=== PATIENT | female | born 1985 | race Two or more races ===

== ENCOUNTER 2018-01-21 02:33 | Inpatient (IN) | payer BC ==
[~2018-01-21] VITALS: Ht 162.6 cm; Wt 59.0 kg
--- NOTE | 2018-01-21 02:52 | PHYS DOC ---
Adult General Chief Complaint Chief Complaint: ABDOMINAL PAIN HPI HPI Patient is a 32 year old female who presents with right flank pain. Patient was at baseline health until 10 PM last night. She had sudden onset of pain in the right flank. Since then, she has had worsening pain symptoms. She has had nausea and vomiting. No fever or chills. She does endorse some dysuria and frequency of urination. Her last menstrual. Was on the 22 of last month. Patient states she is normally regular. No abnormal vaginal bleeding or discharge. Review of Systems Review of Systems Constitutional: Denies fever or chills Eyes: Denies change in visual acuity HENT: Denies nasal congestion Respiratory: Denies cough or shortness of breath Cardiovascular: No additional information not addressed in HPI GI: no abdominal pain : + dysuria and urgency of urine Integument: Denies rash or skin lesions Neurologic: Denies Endocrine: Denies All other systems were reviewed and found to be within normal limits, except as documented in this note. Current Medications Current Medications Current Medications Medications (Trade) Dose Ordered Sig/Renee Start Time Stop Time Status Last Admin Dose Admin Ceftriaxone Sodium 50 ml @ 100 mls/hr 1X ONCE 01/21/18 04:30 01/21/18 04:59 DC 01/21/18 04:29 100 MLS/HR Fentanyl Citrate (Fentanyl 2ml Vial) 75 mcg 1X ONCE 01/21/18 03:30 01/21/18 03:31 DC 01/21/18 03:09 75 MCG Ketorolac Tromethamine (Toradol 30mg Vial) 30 mg 1X ONCE 01/21/18 06:00 01/21/18 06:01 01/21/18 05:39 30 MG Morphine Sulfate (Morphine Sulfate) 4 mg PRN Q2HR PRN 01/21/18 05:30 01/22/18 05:29 Ondansetron HCl (Zofran) 4 mg PRN Q8HRS PRN 01/21/18 05:30 01/22/18 05:29 Sodium Chloride 1,000 ml @ 100 mls/hr Q10H 01/21/18 05:30 01/22/18 05:29 01/21/18 05:39 100 MLS/HR Allergies Allergies Allergies Coded Allergies Type Severity Reaction Last Updated Verified No Known Drug Allergies 01/21/18 No Physical Exam Physical Exam Constitutional: Well developed, well nourished, significant distress 2/2 pain HENT: Normocephalic, atraumatic, bilateral external ears normal Eyes: PERRLA, EOMI, conjunctiva normal Neck: Normal range of motion, no tenderness Cardiovascular:Heart rate regular rhythm Lungs & Thorax: Bilateral breath sounds clear Abdomen: Bowel sounds normal, soft, NTTP Skin: Warm, dry, no erythema, no rash Back: No tenderness, + right CVA tenderness Extremities: No tenderness, no edema Neurologic: Alert and oriented X 3 Psychologic: Affect normal Current Patient Data Vital Signs Vital Signs Date Time Temp Pulse Resp B/P (MAP) Pulse Ox O2 Delivery O2 Flow Rate FiO2 01/21/18 04:28 22 01/21/18 03:09 96 01/21/18 02:40 99.9 102 120/72 (88) Room Air 99.9 Lab Values Laboratory Tests Test 01/21/18 02:02 01/21/18 02:50 01/21/18 02:55 Urine Collection Type Unknown Urine Color Yellow Urine Clarity Cloudy Urine pH 5.5 Urine Specific [place] 1.020 Urine Protein 100 mg/dL (NEG-TRACE) Urine Glucose (UA) Negative mg/dL (NEG) Urine Ketones (Stick) Negative mg/dL (NEG) Urine Blood Large (NEG) Urine Nitrite Positive (NEG) Urine Bilirubin Negative (NEG) Urine Urobilinogen Dipstick 0.2 mg/dL (0.2 mg/dL) Urine Leukocyte Esterase Large (NEG) Urine RBC Tntc /HPF (0-2) Urine WBC Tntc /HPF (0-4) Urine Squamous Epithelial Cells Few /LPF Urine Bacteria Many /HPF (0-FEW) POC Urine HCG, Qualitative Hcg negative (Negative) White Blood Count 10.0 x10^3/uL (4.0-11.0) Red Blood Count 4.36 x10^6/uL (3.50-5.40) Hemoglobin 13.3 g/dL (12.0-15.5) Hematocrit 37.8 % (36.0-47.0) Mean Corpuscular Volume 87 fL (79-100) Mean Corpuscular Hemoglobin 30 pg (25-35) Mean Corpuscular Hemoglobin Concent 35 g/dL (31-37) Red Cell Distribution Width 13.8 % (11.5-14.5) Platelet Count 229 x10^3/uL (140-400) Neutrophils (%) (Auto) 89 % (31-73) H Lymphocytes (%) (Auto) 9 % (24-48) L Monocytes (%) (Auto) 1 % (0-9) Eosinophils (%) (Auto) 0 % (0-3) Basophils (%) (Auto) 1 % (0-3) Neutrophils # (Auto) 8.9 x10^3uL (1.8-7.7) H Lymphocytes # (Auto) 0.9 x10^3/uL (1.0-4.8) L Monocytes # (Auto) 0.1 x10^3/uL (0.0-1.1) Eosinophils # (Auto) 0.0 x10^3/uL (0.0-0.7) Basophils # (Auto) 0.1 x10^3/uL (0.0-0.2) Segmented Neutrophils % 86 % (35-66) H Band Neutrophils % 6 % (0-9) Lymphocytes % 7 % (24-48) L Monocytes % 1 % (0-10) Platelet Estimate Adequate (ADEQUATE) Sodium Level 138 mmol/L (136-145) Potassium Level 3.6 mmol/L (3.5-5.1) Chloride Level 103 mmol/L (98-107) Carbon Dioxide Level 23 mmol/L (21-32) Anion Gap 12 (6-14) Blood Urea Nitrogen 17 mg/dL (7-20) Creatinine 0.9 mg/dL (0.6-1.0) Estimated GFR (Cockcroft-Gault) 72.1 Glucose Level 124 mg/dL (70-99) H Calcium Level 8.6 mg/dL (8.5-10.1) Laboratory Tests 01/21/18 02:55 Laboratory Tests 01/21/18 02:55 EKG EKG [] Radiology/Procedures Radiology/Procedures FINDINGS: Images through the lung bases demonstrate minimal dependent subsegmental atelectasis bilaterally. The liver, spleen, pancreas, and adrenal glands are within normal limits. No focal abnormality of the left kidney is seen. Mild prominence of the right intrarenal collecting system is seen. A 2 mm calcific density is seen in the region of the right UPJ best seen on the coronal reconstructed images. This is felt to represent a right UPJ calculus which is causing mild obstruction of the right collecting system. There is no evidence of obstruction of the left collecting system. The abdominal aorta tapers normally. The gallbladder is well-distended. No free fluid or free air is seen within the abdomen. There is no evidence of bowel obstruction. Air and stool seen throughout the colon. The appendix is well-visualized and is within normal limits. Images through the pelvis demonstrate the urinary bladder distended with urine. No free fluid is seen. No adnexal mass is noted. Minimal S-shaped curvature of the thoracolumbar spine is seen. IMPRESSION: There appears to be a 2 mm right UPJ calculus which is causing mild obstruction of the right collecting system. Course & Med Decision Making Course & Med Decision Making Pertinent Labs and Imaging studies reviewed. (See chart for details) 02:45: Patient is seen and examined. Significant distress with right flank pain. Labs, IVF's, medications for pain ordered. 03:30: Feeling improved. Labs pending. 05:15: All results are reviewed. The patient does continue to have some pain. She has had 1 L of normal saline in the ER. She was noted to have urinary tract infection as well. There is a 2 mm stone at the right UVJ with mild hydro-. Given that started is infected, I discussed the option of admission versus discharge home with the patient. The patient prefers admission for pain control primarily. She will be admitted to the hospitalist service. There is no acute intervention required for a 2 mm stone so urology consultation is deferred to the decision of the primary admitting team. Prior to admission, all results are reviewed and explained to the patient. All of her questions are answered. Her family member is serving as the primary air technician. Dragon Disclaimer Dragon Disclaimer This electronic medical record was generated, in whole or in part, using a voice recognition dictation system. Departure Departure Disposition: ADMITTED INPATIENT Condition: STABLE Referrals: NO PCP (PCP) NELLI BURNETT DO Jan 21, 2018 02:52
[2018-01-21 02:59] LABS: BILIRUBIN,URINE NEGATIVE (NEG); CLARITY,URINE CLOUDY; COLOR,URINE YELLOW; NITRITE,URINE POSITIVE (NEG); PH,URINE 5.5; PROTEIN,URINE 100 mg/dL (NEG-TRACE); UROBILINOGEN,URINE 0.2 mg/dL (0.2 mg/dL)
[2018-01-21 03:10] LABS: BASO # 0.1 x10^3/uL (0.0-0.2); BASO % 1 % (0-3); EOS % 0 % (0-3); HEMATOCRIT 37.8 % (36.0-47.0); HEMOGLOBIN 13.3 g/dL (12.0-15.5); LYMPH # 0.9 x10^3/uL (1.0-4.8); LYMPH % 9 % (24-48); MEAN CORPUSCULAR HEMOGLOBIN 30 pg (25-35); MEAN CORPUSCULAR HGB CONC 35 g/dL (31-37); MEAN CORPUSCULAR VOLUME 87 fL (79-100); MONO # 0.1 x10^3/uL (0.0-1.1); MONO % 1 % (0-9); NEUT # 8.9 x10^3uL (1.8-7.7); NEUT % 89 % (31-73); PLATELET COUNT 229 x10^3/uL (140-400); RED BLOOD COUNT 4.36 x10^6/uL (3.50-5.40); RED CELL DISTRIBUTION WIDTH 13.8 % (11.5-14.5)
[2018-01-21 03:27] LABS: CALCIUM 8.6 mg/dL (8.5-10.1); CREATININE 0.9 mg/dL (0.6-1.0); GFR 72.1; POTASSIUM 3.6 mmol/L (3.5-5.1)
[2018-01-21] MEDS ORDERED: ONDANSETRON PF 4 MG/2 ML VIAL. IV ONE (03:30)
[2018-01-21] MEDS ORDERED: fentaNYL PF VIAL 100 MCG/2 ML VIAL IV ONE (03:30)
[2018-01-21 03:31] LABS: BACTERIA,URINE MANY /HPF (0-FEW); RBC,URINE TNTC /HPF (0-2); SQUAMOUS EPITHELIAL CELL,UR FEW /LPF; WBC,URINE TNTC /HPF (0-4)
[2018-01-21] MEDS ORDERED: IV NORMAL SALINE 1000ML BAG 1,000 ML IV ONE (04:00)
[2018-01-21] MEDS ORDERED: MORPHINE SULFATE 4 MG/ML VIAL. IV ONE (04:30)
--- NOTE | 2018-01-21 04:48 | RAD ---
CT scan of the abdomen and pelvis without contrast 01/21/2018 CLINICAL HISTORY: Right flank pain. TECHNIQUE: Unenhanced, contiguous, 2 mm axial sections were obtained through the abdomen and pelvis. One or more of the following individualized dose reduction techniques were utilized for this study: 1. Automated exposure control. 2. Adjustment of the mA and/or kV according to patient size. 3. Use of iterative reconstruction technique. FINDINGS: Images through the lung bases demonstrate minimal dependent subsegmental atelectasis bilaterally. The liver, spleen, pancreas, and adrenal glands are within normal limits. No focal abnormality of the left kidney is seen. Mild prominence of the right intrarenal collecting system is seen. A 2 mm calcific density is seen in the region of the right UPJ best seen on the coronal reconstructed images. This is felt to represent a right UPJ calculus which is causing mild obstruction of the right collecting system. There is no evidence of obstruction of the left collecting system. The abdominal aorta tapers normally. The gallbladder is well-distended. No free fluid or free air is seen within the abdomen. There is no evidence of bowel obstruction. Air and stool seen throughout the colon. The appendix is well-visualized and is within normal limits. Images through the pelvis demonstrate the urinary bladder distended with urine. No free fluid is seen. No adnexal mass is noted. Minimal S-shaped curvature of the thoracolumbar spine is seen. IMPRESSION: There appears to be a 2 mm right UPJ calculus which is causing mild obstruction of the right collecting system. Electronically signed by: Jose Jean Baptiste MD (01/21/2018 4:45 AM) [facility]
[2018-01-21] MEDS ORDERED: ONDANSETRON PF 4 MG/2 ML VIAL. IV PRN ×2 (05:30→09:00)
[2018-01-21] MEDS: IV NORMAL SALINE 1000ML BAG 1,000 ML IV SCH ×2 (05:39→15:30)
[2018-01-21 05:46] LABS: % BANDS 6 % (0-9); % LYMPHS 7 % (24-48); % MONOS 1 % (0-10); % SEGS 86 % (35-66); PLT ESTIMATE ADEQUATE (ADEQUATE)
[2018-01-21] MEDS ORDERED: KETOROLAC 30 MG/ML VIAL. IV ONE (06:00)
[2018-01-21 07:00] VITALS: BP 97/61
[2018-01-21] MEDS ORDERED: PROCHLORPERAZINE 10 MG/2 ML VIAL. IV PRN (09:00)
[2018-01-21] MEDS ORDERED: BISACODYL 10 MG SUPP.RECT. PR PRN (09:00)
[2018-01-21] MEDS ORDERED: ACETAMINOPHEN 325 MG TABLET. PO PRN (09:00)
--- NOTE | 2018-01-21 09:04 | PDOC1 ---
History and Physical Date of Admission Date of Admission DATE: 01/21/18 TIME: 08:58 Identification/Chief Complaint Chief Complaint Abdominal Pain Source Source: Patient History of Present Illness History of Present Illness 32 year old macedonian speaking female with no significant PMHx p/w right flank pain. At 2200 last night had sudden onset sharp colicky pains not relieved with repositioning or tylenol. Since then, she has had worsening pain symptoms and now had nausea and vomiting. No fever or chills. She denies or h/o STIs and no history of nephrolithiasis. She does endorse some dysuria and frequency of urination. LMP 22nd of last month. Patient states she is normally regular. No abnormal vaginal bleeding or discharge. In ED noted tachycardic and tachypneic, given IVF and had CT showing right hydronephrosis and 2mm UPJ stone. Due to her initial septic appearance was given 1g rocephin and admitted for pain control. Past Medical History Cardiovascular: No pertinent hx Pulmonary: No pertinent hx GI: No pertinent hx Heme/Onc: No pertinent hx Hepatobiliary: No pertinent hx Psych: No pertinent hx Rheumatologic: No pertinent hx Infectious disease: No pertinent hx ENT: No pertinent hx Renal/: No pertinent hx Endocrine: No pertinent hx Dermatology: No pertinent hx Family History Family History: Diabetes, High Cholestrol, Hypertension Social History Smoke: No ALCOHOL: none Drugs: None Current Problem List Problem List Problems Medical Problems: (1) Kidney stone Status: Acute (2) Urinary tract infection Status: Acute Current Medications Current Medications Current Medications Ondansetron HCl (Zofran) 4 mg 1X ONCE IV Last administered on 01/21/18at 03:09 ; Start 01/21/18 at 03:30; Stop 01/21/18 at 03:31; Status DC Fentanyl Citrate (Fentanyl 2ml Vial) 75 mcg 1X ONCE IV Last administered on at 03:09; Start 01/21/18 at 03:30; Stop 01/21/18 at 03:31; Status DC Sodium Chloride 1,000 ml @ 1,000 mls/hr 1X ONCE IV Last administered on 01/21at 03:53; Start 01/21/18 at 04:00; Stop 01/21/18 at 04:59; Status DC Ceftriaxone Sodium 50 ml @ 100 mls/hr 1X ONCE IV Last administered on at 04:29; Start 01/21/18 at 04:30; Stop 01/21/18 at 04:59; Status DC Morphine Sulfate (Morphine Sulfate) 4 mg 1X ONCE IV Last administered on 01/21at 04:28; Start 01/21/18 at 04:30; Stop 01/21/18 at 04:31; Status DC Ondansetron HCl (Zofran) 4 mg PRN Q8HRS PRN IV NAUSEA/VOMITING 1ST CHOICE; Start 01/21/18 at 05:30; Stop 01/22/18 at 05:29 Morphine Sulfate (Morphine Sulfate) 4 mg PRN Q2HR PRN IV SEVERE PAIN; Start at 05:30; Stop 01/22/18 at 05:29 Sodium Chloride 1,000 ml @ 100 mls/hr Q10H IV Last administered on 01/21/18at 05:39; Start 01/21/18 at 05:30; Stop 01/22/18 at 05:29 Ketorolac Tromethamine (Toradol 30mg Vial) 30 mg 1X ONCE IV Last administered on 01/21/18at 05:39; Start 01/21/18 at 06:00; Stop 01/21/18 at 06:01; Status DC Allergies Allergies: Coded Allergies: No Known Drug Allergies (Unverified , 01/21/18) ROS General: YES: Chills; No: Night Sweats, Fatigue, Malaise, Appetite, Other PSYCHOLOGICAL ROS: No: Anxiety, Behavioral Disorder, Concentration difficultie , Decreased libido, Depression, Disorientation, Hallucinations, Hostility, Irritablity, Memory difficulties, Mood Swings, Obsessive thoughts, Physical abuse, Sexual abuse, Sleep disturbances, Suicidal ideation, Other Eyes: No Blurry vision, No Decreased vision, No Double vision, No Dry eyes, No Excessive tearing, No Eye Pain, No Itchy Eyes, No Loss of vision, No Photophobia , No Scotomata, No Uses contacts, No Uses glasses, No Other HEENT: No: Heacaches, Visual Changes, Hearing change, Nasal congestion, Nasal discharge, Oral lesions, Sinus pain, Sore Throat, Epistaxis, Sneezing, Snoring, Tinnitus, Vertigo, Vocal changes, Other ALLERGY AND IMMUNOLOGY: No: Hives, Insect Bite Sensitivity, Itchy/Watery Eyes, Nasal Congestion, Post Nasal Drip, Seasonal Allergies, Other Hematological and Lymphatic: No: Bleeding Problems, Blood Clots, Blood Transfusions, Brusing, Night Sweats, Pallor, Swollen Lymph Nodes, Other ENDOCRINE: No: Breast Changes, Galactorrhea, Hair Pattern Changes, Hot Flashes , Malaise/lethargy, Mood Swings, Palpitations, Polydipsia/polyuria, Skin Changes , Temperature Intolerance, Unexpected Weight Changes, Other Breast: No New/Changing Breast Lumps, No Nipple changes, No Nipple discharge, No Other Respiratory: No: Cough, Hemoptysis, Orthopnea, Pleuritic Pain, Shortness of breath, SOB with excertion, Sputum Changes, Stridor, Tachypnea, Wheezing, Other Cardiovascular: No Chest Pain, No Palpitations, No Orthopnea, No Paroxysmal Noc. Dyspnea, No Edema, No Lt Headedness, No Other Gastrointestinal: Yes Nausea, Yes Vomiting, Yes Abdominal Pain; No Diarrhea, No Constipation, No Melena, No Hematochezia, No Other Genitourinary: YES Dysuria, YES Frequency, YES Hematuria; No Incontinence, No Retention, No Discharge, No Urgency, No Pain, No Flank Pain, No Other, No , No , No , No , No , No , No Musculoskeletal: No Gait Disturbance, No Joint Pain, No Joint Stiffness, No Joint Swelling, No Muscle Pain, No Muscular Weakness, No Pain In:, No Swelling In:, No Other Neurological: No Behavorial Changes, No Bowel/Bladder ControlChng, No Confusion , No Dizziness, No Gait Disturbance, No Headaches, No Impaired Coord/balance, No Memory Loss, No Numbness/Tingling, No Seizures, No Speech Problems, No Tremors, No Visual Changes, No Weakness, No Other Skin: No Dry Skin, No Eczema, No Hair Changes, No Lumps, No Mole Changes, No Mottling, No Nail Changes, No Pruritus, No Rash, No Skin Lesion Changes, No Other, No Acne Physical Exam General: Alert, Oriented X3, Cooperative, No acute distress HEENT: Atraumatic, PERRLA, EOMI, Mucous membr. moist/pink Lungs: Clear to auscultation, Normal air movement Heart: S1S2, RRR, no gallops, no murmurs Abdomen: Normal bowel sounds, Soft, No hepatosplenomegaly, No masses, Other ( Right flank pain and suprpubic pain, RLQ pain) Rectal Exam: not examined PELVIC: Exam declined by patient Extremities: No clubbing, No cyanosis, No edema, Normal pulses, No tenderness/ swelling Skin: No rashes, No breakdown, No significant lesion Neuro: Normal gait, Normal speech, Strength at 5/5 X4 ext, Normal tone, Sensation intact, Cranial nerves 3-12 NL, Reflexes 2+ Psych/Mental Status: Mental status NL, Mood NL Vitals Vitals Vital Signs Date Time Temp Pulse Resp B/P (MAP) Pulse Ox O2 Delivery O2 Flow Rate FiO2 01/21/18 07:00 97.8 65 20 97/61 (73) 98 Room Air 97.8 Labs Labs Laboratory Tests Test 01/21/18 02:02 01/21/18 02:50 01/21/18 02:55 Urine Collection Type Unknown Urine Color Yellow Urine Clarity Cloudy Urine pH 5.5 Urine Specific [place] 1.020 Urine Protein 100 mg/dL (NEG-TRACE) Urine Glucose (UA) Negative mg/dL (NEG) Urine Ketones (Stick) Negative mg/dL (NEG) Urine Blood Large (NEG) Urine Nitrite Positive (NEG) Urine Bilirubin Negative (NEG) Urine Urobilinogen Dipstick 0.2 mg/dL (0.2 mg/dL) Urine Leukocyte Esterase Large (NEG) Urine RBC Tntc /HPF (0-2) Urine WBC Tntc /HPF (0-4) Urine Squamous Epithelial Cells Few /LPF Urine Bacteria Many /HPF (0-FEW) Bedside Urine HCG, Qualitative Hcg negative (Negative) White Blood Count 10.0 x10^3/uL (4.0-11.0) Red Blood Count 4.36 x10^6/uL (3.50-5.40) Hemoglobin 13.3 g/dL (12.0-15.5) Hematocrit 37.8 % (36.0-47.0) Mean Corpuscular Volume 87 fL (79-100) Mean Corpuscular Hemoglobin 30 pg (25-35) Mean Corpuscular Hemoglobin Concent 35 g/dL (31-37) Red Cell Distribution Width 13.8 % (11.5-14.5) Platelet Count 229 x10^3/uL (140-400) Neutrophils (%) (Auto) 89 % (31-73) Lymphocytes (%) (Auto) 9 % (24-48) Monocytes (%) (Auto) 1 % (0-9) Eosinophils (%) (Auto) 0 % (0-3) Basophils (%) (Auto) 1 % (0-3) Neutrophils # (Auto) 8.9 x10^3uL (1.8-7.7) Lymphocytes # (Auto) 0.9 x10^3/uL (1.0-4.8) Monocytes # (Auto) 0.1 x10^3/uL (0.0-1.1) Eosinophils # (Auto) 0.0 x10^3/uL (0.0-0.7) Basophils # (Auto) 0.1 x10^3/uL (0.0-0.2) Segmented Neutrophils % 86 % (35-66) Band Neutrophils % 6 % (0-9) Lymphocytes % 7 % (24-48) Monocytes % 1 % (0-10) Platelet Estimate Adequate (ADEQUATE) Sodium Level 138 mmol/L (136-145) Potassium Level 3.6 mmol/L (3.5-5.1) Chloride Level 103 mmol/L (98-107) Carbon Dioxide Level 23 mmol/L (21-32) Anion Gap 12 (6-14) Blood Urea Nitrogen 17 mg/dL (7-20) Creatinine 0.9 mg/dL (0.6-1.0) Estimated GFR (Cockcroft-Gault) 72.1 Glucose Level 124 mg/dL (70-99) Calcium Level 8.6 mg/dL (8.5-10.1) Laboratory Tests Test 01/21/18 02:02 01/21/18 02:50 01/21/18 02:55 Urine Collection Type Unknown Urine Color Yellow Urine Clarity Cloudy Urine pH 5.5 Urine Specific [place] 1.020 Urine Protein 100 mg/dL (NEG-TRACE) Urine Glucose (UA) Negative mg/dL (NEG) Urine Ketones (Stick) Negative mg/dL (NEG) Urine Blood Large (NEG) Urine Nitrite Positive (NEG) Urine Bilirubin Negative (NEG) Urine Urobilinogen Dipstick 0.2 mg/dL (0.2 mg/dL) Urine Leukocyte Esterase Large (NEG) Urine RBC Tntc /HPF (0-2) Urine WBC Tntc /HPF (0-4) Urine Squamous Epithelial Cells Few /LPF Urine Bacteria Many /HPF (0-FEW) Bedside Urine HCG, Qualitative Hcg negative (Negative) White Blood Count 10.0 x10^3/uL (4.0-11.0) Red Blood Count 4.36 x10^6/uL (3.50-5.40) Hemoglobin 13.3 g/dL (12.0-15.5) Hematocrit 37.8 % (36.0-47.0) Mean Corpuscular Volume 87 fL (79-100) Mean Corpuscular Hemoglobin 30 pg (25-35) Mean Corpuscular Hemoglobin Concent 35 g/dL (31-37) Red Cell Distribution Width 13.8 % (11.5-14.5) Platelet Count 229 x10^3/uL (140-400) Neutrophils (%) (Auto) 89 % (31-73) Lymphocytes (%) (Auto) 9 % (24-48) Monocytes (%) (Auto) 1 % (0-9) Eosinophils (%) (Auto) 0 % (0-3) Basophils (%) (Auto) 1 % (0-3) Neutrophils # (Auto) 8.9 x10^3uL (1.8-7.7) Lymphocytes # (Auto) 0.9 x10^3/uL (1.0-4.8) Monocytes # (Auto) 0.1 x10^3/uL (0.0-1.1) Eosinophils # (Auto) 0.0 x10^3/uL (0.0-0.7) Basophils # (Auto) 0.1 x10^3/uL (0.0-0.2) Segmented Neutrophils % 86 % (35-66) Band Neutrophils % 6 % (0-9) Lymphocytes % 7 % (24-48) Monocytes % 1 % (0-10) Platelet Estimate Adequate (ADEQUATE) Sodium Level 138 mmol/L (136-145) Potassium Level 3.6 mmol/L (3.5-5.1) Chloride Level 103 mmol/L (98-107) Carbon Dioxide Level 23 mmol/L (21-32) Anion Gap 12 (6-14) Blood Urea Nitrogen 17 mg/dL (7-20) Creatinine 0.9 mg/dL (0.6-1.0) Estimated GFR (Cockcroft-Gault) 72.1 Glucose Level 124 mg/dL (70-99) Calcium Level 8.6 mg/dL (8.5-10.1) Images Images CT Abdomen - There appears to be a 2 mm right UPJ calculus which is causing mild obstruction of the right collecting system. VTE Prophylaxis Ordered VTE Prophylaxis Devices: Yes VTE Pharmacological Prophylaxi: No Assessment/Plan Assessment/Plan UTI - with sepsis, elevated HR and RR, given IVF aggressively, started on empiric rocephin for UTI, likely from infection kidney stone on right Right hydronephrosis - likely 2/2 UPJ obstruction Right nephrolithiasis - will consult urology, with size, this may pass. Add flomax FEN - NPO, LR PPX - SCDs FULL CODE Inpatient for obstructive nephrolithiasis with hydronephrosis NICOLAS POTTS MD Jan 21, 2018 09:04
[2018-01-21] MEDS: SENNOSIDES/DOCUSATE 8.6/50MG TABLET. PO SCH ×2 (09:33→21:00)
[2018-01-21] MEDS: IV RINGERS,LACTATED 1000ML 1,000 ML IV SCH ×2 (09:33→19:39)
[2018-01-21] MEDS: MORPHINE SULFATE 4 MG/ML VIAL. IV PRN ×3 (09:34→21:36)
[2018-01-21 11:00] VITALS: BP 95/53
[2018-01-21 15:00] VITALS: BP 102/59
[2018-01-21 19:00] VITALS: BP 99/62
[2018-01-21] MEDS: KETOROLAC 30 MG/ML VIAL. IV PRN (21:35)
[2018-01-21] MEDS: TAMSULOSIN 0.4 MG CAP.ER.24H. PO SCH (21:35)
[2018-01-21 23:00] VITALS: BP 98/59
[2018-01-22] VITALS (13 sets, daily range): BP systolic 96–111; BP diastolic 50–70
[2018-01-22] MEDS: MORPHINE SULFATE 4 MG/ML VIAL. IV PRN (03:09)
[2018-01-22] MEDS: IV RINGERS,LACTATED 1000ML 1,000 ML IV SCH ×3 (05:40→20:48)
[2018-01-22 05:57] LABS: BASO % 0 % (0-3); EOS % 0 % (0-3); HEMATOCRIT 33.8 % (36.0-47.0); HEMOGLOBIN 11.5 g/dL (12.0-15.5); LYMPH % 12 % (24-48); MEAN CORPUSCULAR HEMOGLOBIN 30 pg (25-35); MEAN CORPUSCULAR HGB CONC 34 g/dL (31-37); MEAN CORPUSCULAR VOLUME 88 fL (79-100); MONO # 0.5 x10^3/uL (0.0-1.1); MONO % 6 % (0-9); NEUT # 6.5 x10^3uL (1.8-7.7); NEUT % 81 % (31-73); PLATELET COUNT 162 x10^3/uL (140-400); RED BLOOD COUNT 3.85 x10^6/uL (3.50-5.40); RED CELL DISTRIBUTION WIDTH 14.3 % (11.5-14.5)
[2018-01-22 06:05] LABS: CALCIUM 8.3 mg/dL (8.5-10.1); CREATININE 0.6 mg/dL (0.6-1.0); GFR 115.1; POTASSIUM 3.3 mmol/L (3.5-5.1)
[2018-01-22] MEDS: SENNOSIDES/DOCUSATE 8.6/50MG TABLET. PO SCH ×2 (07:27→20:47)
--- NOTE | 2018-01-22 08:55 | PDOC2 ---
JAJAEMY Constantine CAMARILLO 01/22/18 0855: UROLOGY CONSULT Date of Consult Date of Consult DATE: 01/22/18 TIME: 08:48 Source Source: Chart review, Patient History of Present Illness Reason for Visit: Patient is a 32 year old female who presented last night through the ER with flank pain. She had only had some mild urinary frequency and burning until about 10 pm last night. She thinks she may have had some fevers, but is not sure because she did not measure them with a thermometer. This morning she still has flank pain, although it is better with medication. This is the first time she has had any trouble with kidney stones or kidney function problems. She is concerned about returning to work and would like a note so her employer will know what is going on. She has had only a sip of water this morning but has been mostly NPO since midnight. Past Medical History Cardiovascular: No pertinent hx Pulmonary: No pertinent hx GI: No pertinent hx Heme/Onc: No pertinent hx Hepatobiliary: No pertinent hx Psych: No pertinent hx Rheumatologic: No pertinent hx Infectious disease: No pertinent hx ENT: No pertinent hx Renal/: No pertinent hx Endocrine: No pertinent hx Dermatology: No pertinent hx Family History Family History: Diabetes, High Cholestrol, Hypertension Social History No ALCOHOL: none Drugs: None Lives: with Family Current Problem List Problems: (1) Kidney stone (2) Urinary tract infection Current Medications Current Medications Current Medications Acetaminophen (Tylenol) 650 mg PRN Q6HRS PRN PO Headaches, Temp > 101.5F; Start 01/21/18 at 09:00 Bisacodyl (Dulcolax Supp) 10 mg PRN DAILY PRN [place] CONSTIPATION; Start 01/21/18 at 09:00 Ketorolac Tromethamine (Toradol 30mg Vial) 30 mg PRN Q6HRS PRN IV PAIN Last administered on 01/21/18at 21:35; Start 01/21/18 at 09:00; Stop 01/26/18 at 08: 59 Ondansetron HCl (Zofran) 4 mg PRN Q6HRS PRN IV NAUSEA/VOMITING; Start at 09:00 Prochlorperazine Edisylate (Compazine) 10 mg PRN Q6HRS PRN IV NAUSEA/VOMITING; Start 01/21/18 at 09:00 Ringer's Solution 1,000 ml @ 100 mls/hr Q10H IV Last administered on at 05:40; Start 01/21/18 at 09:30 Senna/Docusate Sodium (Senna Plus) 1 tab BID PO Last administered on at 07:27; Start 01/21/18 at 09:30 Tamsulosin HCl (Flomax) 0.4 mg QHS PO Last administered on 01/21/18at 21:35; Start 01/21/18 at 21:00 Allergies Allergies: Coded Allergies: No Known Drug Allergies (Unverified , 01/21/18) ROS Review Of Systems: CONSTITUTIONAL: + fever EYES: No recent changes SKIN: No rash or itching CARDIOVASCULAR: No chest pain, syncope, palpitations, or edema RESPIRATORY: No SOB or cough GASTROINTESTINAL: + flank pain NEUROLOGICAL: No headaches or weakness ENDOCRINE: No cold or heat intolerance GENITOURINARY: No urgency or frequency of urination MUSCULOSKELETAL: No back pain or joint pain LYMPHATICS: No enlarged lymph nodes PSYCHIATRIC: No anxiety or depression Physical Exam Physical Exam: General: Pleasant, no acute distress, well groomed Eyes: conjunctiva anicteric, eyes full range of motion ENT: moist oral mucosa, normal dentition Neck: Trachea midline, no masses Respiratory: unlabored breathing, not using accessory muscles, Abdomen: tender right side, non tender on the left. Psych: normal mood, affect. Alert and oriented x 3. Vitals VITALS Vital Signs Date Time Temp Pulse Resp B/P (MAP) Pulse Ox O2 Delivery O2 Flow Rate FiO2 01/22/18 07:42 99.8 87 16 111/70 (84) 97 Room Air 99.8 Labs Labs Laboratory Tests Test 01/21/18 02:02 01/21/18 02:50 01/21/18 02:55 01/22/18 05:00 Urine Collection Type Unknown Urine Color Yellow Urine Clarity Cloudy Urine pH 5.5 Urine Specific [place] 1.020 Urine Protein 100 mg/dL (NEG-TRACE) Urine Glucose (UA) Negative mg/dL (NEG) Urine Ketones (Stick) Negative mg/dL (NEG) Urine Blood Large (NEG) Urine Nitrite Positive (NEG) Urine Bilirubin Negative (NEG) Urine Urobilinogen Dipstick 0.2 mg/dL (0.2 mg/dL) Urine Leukocyte Esterase Large (NEG) Urine RBC Tntc /HPF (0-2) Urine WBC Tntc /HPF (0-4) Urine Squamous Epithelial Cells Few /LPF Urine Bacteria Many /HPF (0-FEW) Bedside Urine HCG, Qualitative Hcg negative (Negative) White Blood Count 10.0 x10^3/uL (4.0-11.0) 8.0 x10^3/uL (4.0-11.0) Red Blood Count 4.36 x10^6/uL (3.50-5.40) 3.85 x10^6/uL (3.50-5.40) Hemoglobin 13.3 g/dL (12.0-15.5) 11.5 g/dL (12.0-15.5) Hematocrit 37.8 % (36.0-47.0) 33.8 % (36.0-47.0) Mean Corpuscular Volume 87 fL (79-100) 88 fL (79-100) Mean Corpuscular Hemoglobin 30 pg (25-35) 30 pg (25-35) Mean Corpuscular Hemoglobin Concent 35 g/dL (31-37) 34 g/dL (31-37) Red Cell Distribution Width 13.8 % (11.5-14.5) 14.3 % (11.5-14.5) Platelet Count 229 x10^3/uL (140-400) 162 x10^3/uL (140-400) Neutrophils (%) (Auto) 89 % (31-73) 81 % (31-73) Lymphocytes (%) (Auto) 9 % (24-48) 12 % (24-48) Monocytes (%) (Auto) 1 % (0-9) 6 % (0-9) Eosinophils (%) (Auto) 0 % (0-3) 0 % (0-3) Basophils (%) (Auto) 1 % (0-3) 0 % (0-3) Neutrophils # (Auto) 8.9 x10^3uL (1.8-7.7) 6.5 x10^3uL (1.8-7.7) Lymphocytes # (Auto) 0.9 x10^3/uL (1.0-4.8) 1.0 x10^3/uL (1.0-4.8) Monocytes # (Auto) 0.1 x10^3/uL (0.0-1.1) 0.5 x10^3/uL (0.0-1.1) Eosinophils # (Auto) 0.0 x10^3/uL (0.0-0.7) 0.0 x10^3/uL (0.0-0.7) Basophils # (Auto) 0.1 x10^3/uL (0.0-0.2) 0.0 x10^3/uL (0.0-0.2) Segmented Neutrophils % 86 % (35-66) Band Neutrophils % 6 % (0-9) Lymphocytes % 7 % (24-48) Monocytes % 1 % (0-10) Platelet Estimate Adequate (ADEQUATE) Sodium Level 138 mmol/L (136-145) 137 mmol/L (136-145) Potassium Level 3.6 mmol/L (3.5-5.1) 3.3 mmol/L (3.5-5.1) Chloride Level 103 mmol/L (98-107) 104 mmol/L (98-107) Carbon Dioxide Level 23 mmol/L (21-32) 25 mmol/L (21-32) Anion Gap 12 (6-14) 8 (6-14) Blood Urea Nitrogen 17 mg/dL (7-20) 7 mg/dL (7-20) Creatinine 0.9 mg/dL (0.6-1.0) 0.6 mg/dL (0.6-1.0) Estimated GFR (Cockcroft-Gault) 72.1 115.1 Glucose Level 124 mg/dL (70-99) 88 mg/dL (70-99) Calcium Level 8.6 mg/dL (8.5-10.1) 8.3 mg/dL (8.5-10.1) Laboratory Tests Test 01/22/18 05:00 White Blood Count 8.0 x10^3/uL (4.0-11.0) Red Blood Count 3.85 x10^6/uL (3.50-5.40) Hemoglobin 11.5 g/dL (12.0-15.5) Hematocrit 33.8 % (36.0-47.0) Mean Corpuscular Volume 88 fL (79-100) Mean Corpuscular Hemoglobin 30 pg (25-35) Mean Corpuscular Hemoglobin Concent 34 g/dL (31-37) Red Cell Distribution Width 14.3 % (11.5-14.5) Platelet Count 162 x10^3/uL (140-400) Neutrophils (%) (Auto) 81 % (31-73) Lymphocytes (%) (Auto) 12 % (24-48) Monocytes (%) (Auto) 6 % (0-9) Eosinophils (%) (Auto) 0 % (0-3) Basophils (%) (Auto) 0 % (0-3) Neutrophils # (Auto) 6.5 x10^3uL (1.8-7.7) Lymphocytes # (Auto) 1.0 x10^3/uL (1.0-4.8) Monocytes # (Auto) 0.5 x10^3/uL (0.0-1.1) Eosinophils # (Auto) 0.0 x10^3/uL (0.0-0.7) Basophils # (Auto) 0.0 x10^3/uL (0.0-0.2) Sodium Level 137 mmol/L (136-145) Potassium Level 3.3 mmol/L (3.5-5.1) Chloride Level 104 mmol/L (98-107) Carbon Dioxide Level 25 mmol/L (21-32) Anion Gap 8 (6-14) Blood Urea Nitrogen 7 mg/dL (7-20) Creatinine 0.6 mg/dL (0.6-1.0) Estimated GFR (Cockcroft-Gault) 115.1 Glucose Level 88 mg/dL (70-99) Calcium Level 8.3 mg/dL (8.5-10.1) Images Images CT ABD/PELVIS IMPRESSION: There appears to be a 2 mm right UPJ calculus which is causing mild obstruction of the right collecting system. Assessment/Plan Assessment/Plan Infected stone on the right with UTI: We will take patient for cysto and right pyelogram. Surgery arranged for this afternoon at 1230 and consents entered. Explained to patient using some Greek and then an inside sales specialist phone. NPO until after procedure today Note provided on a script pad to take to her work. She can bring in the FMLA papers from her employer to our office and we can fill them out when the surgery is complete and more is known about the next steps. Pt already got Rocephin today at 4 am, no more antibiotics for pre-op needed. All questions answered. ED BURDEN MD 01/22/18 1254: UROLOGY CONSULT Assessment/Plan Assessment/Plan 32 yo F with right flank pain and UA concerning for infection. Very small stone likely in proximal right ureter. Discussed cysto with right retrograde pyelogram and ureteral stent placement today with delayed stone extraction in 2 weeks. Consent was obtained. Sight marked on right hand. All communication done with assistance of an inside sales specialist. EMY WILKINSON APRN Jan 22, 2018 08:55 ED BURDEN MD Jan 22, 2018 12:54
--- NOTE | 2018-01-22 11:24 | PDOC ---
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 Due to her initial septic appearance was given 1g rocephin and admitted for pain control. She is feeling relief with pain medications today. To OR for cystoscopy and likely stent placement. A/P: UTI - with sepsis, elevated HR and RR, given IVF aggressively, started on empiric rocephin for UTI, likely from infection kidney stone on right Right hydronephrosis - likely 2/2 UPJ obstruction Right nephrolithiasis - will consult urology, with size, this may pass. Added flomax. Per urology for cysto and right pyelogram. Surgery arranged for this afternoon at 1230 and consents entered. NPO until after procedure today Vitals Vitals Vital Signs Date Time Temp Pulse Resp B/P (MAP) Pulse Ox O2 Delivery O2 Flow Rate FiO2 01/22/18 08:00 Room Air 01/22/18 07:42 99.8 87 16 111/70 (84) 97 99.8 Physical Exam General: Alert, Oriented X3, Cooperative, No acute distress Abdomen: Normal bowel sounds, Soft, No hepatosplenomegaly, No masses, Other ( Right flank pain and suprpubic pain, RLQ pain) Extremities: No clubbing, No cyanosis, No edema, Normal pulses, No tenderness/ swelling Skin: No rashes, No breakdown, No significant lesion Labs LABS Laboratory Tests Test 01/22/18 05:00 White Blood Count 8.0 x10^3/uL (4.0-11.0) Red Blood Count 3.85 x10^6/uL (3.50-5.40) Hemoglobin 11.5 g/dL (12.0-15.5) Hematocrit 33.8 % (36.0-47.0) Mean Corpuscular Volume 88 fL (79-100) Mean Corpuscular Hemoglobin 30 pg (25-35) Mean Corpuscular Hemoglobin Concent 34 g/dL (31-37) Red Cell Distribution Width 14.3 % (11.5-14.5) Platelet Count 162 x10^3/uL (140-400) Neutrophils (%) (Auto) 81 % (31-73) Lymphocytes (%) (Auto) 12 % (24-48) Monocytes (%) (Auto) 6 % (0-9) Eosinophils (%) (Auto) 0 % (0-3) Basophils (%) (Auto) 0 % (0-3) Neutrophils # (Auto) 6.5 x10^3uL (1.8-7.7) Lymphocytes # (Auto) 1.0 x10^3/uL (1.0-4.8) Monocytes # (Auto) 0.5 x10^3/uL (0.0-1.1) Eosinophils # (Auto) 0.0 x10^3/uL (0.0-0.7) Basophils # (Auto) 0.0 x10^3/uL (0.0-0.2) Sodium Level 137 mmol/L (136-145) Potassium Level 3.3 mmol/L (3.5-5.1) Chloride Level 104 mmol/L (98-107) Carbon Dioxide Level 25 mmol/L (21-32) Anion Gap 8 (6-14) Blood Urea Nitrogen 7 mg/dL (7-20) Creatinine 0.6 mg/dL (0.6-1.0) Estimated GFR (Cockcroft-Gault) 115.1 Glucose Level 88 mg/dL (70-99) Calcium Level 8.3 mg/dL (8.5-10.1) Assessment and Plan Assessmemt and Plan Problems Medical Problems: (1) Kidney stone Status: Acute (2) Urinary tract infection Status: Acute Comment Review of Relevant I have reviewed the following items mireya (where applicable) has been applied. Labs Laboratory Tests Test 01/21/18 02:02 01/21/18 02:50 01/21/18 02:55 01/22/18 05:00 Urine Collection Type Unknown Urine Color Yellow Urine Clarity Cloudy Urine pH 5.5 Urine Specific [place] 1.020 Urine Protein 100 mg/dL (NEG-TRACE) Urine Glucose (UA) Negative mg/dL (NEG) Urine Ketones (Stick) Negative mg/dL (NEG) Urine Blood Large (NEG) Urine Nitrite Positive (NEG) Urine Bilirubin Negative (NEG) Urine Urobilinogen Dipstick 0.2 mg/dL (0.2 mg/dL) Urine Leukocyte Esterase Large (NEG) Urine RBC Tntc /HPF (0-2) Urine WBC Tntc /HPF (0-4) Urine Squamous Epithelial Cells Few /LPF Urine Bacteria Many /HPF (0-FEW) Bedside Urine HCG, Qualitative Hcg negative (Negative) White Blood Count 10.0 x10^3/uL (4.0-11.0) 8.0 x10^3/uL (4.0-11.0) Red Blood Count 4.36 x10^6/uL (3.50-5.40) 3.85 x10^6/uL (3.50-5.40) Hemoglobin 13.3 g/dL (12.0-15.5) 11.5 g/dL (12.0-15.5) Hematocrit 37.8 % (36.0-47.0) 33.8 % (36.0-47.0) Mean Corpuscular Volume 87 fL (79-100) 88 fL (79-100) Mean Corpuscular Hemoglobin 30 pg (25-35) 30 pg (25-35) Mean Corpuscular Hemoglobin Concent 35 g/dL (31-37) 34 g/dL (31-37) Red Cell Distribution Width 13.8 % (11.5-14.5) 14.3 % (11.5-14.5) Platelet Count 229 x10^3/uL (140-400) 162 x10^3/uL (140-400) Neutrophils (%) (Auto) 89 % (31-73) 81 % (31-73) Lymphocytes (%) (Auto) 9 % (24-48) 12 % (24-48) Monocytes (%) (Auto) 1 % (0-9) 6 % (0-9) Eosinophils (%) (Auto) 0 % (0-3) 0 % (0-3) Basophils (%) (Auto) 1 % (0-3) 0 % (0-3) Neutrophils # (Auto) 8.9 x10^3uL (1.8-7.7) 6.5 x10^3uL (1.8-7.7) Lymphocytes # (Auto) 0.9 x10^3/uL (1.0-4.8) 1.0 x10^3/uL (1.0-4.8) Monocytes # (Auto) 0.1 x10^3/uL (0.0-1.1) 0.5 x10^3/uL (0.0-1.1) Eosinophils # (Auto) 0.0 x10^3/uL (0.0-0.7) 0.0 x10^3/uL (0.0-0.7) Basophils # (Auto) 0.1 x10^3/uL (0.0-0.2) 0.0 x10^3/uL (0.0-0.2) Segmented Neutrophils % 86 % (35-66) Band Neutrophils % 6 % (0-9) Lymphocytes % 7 % (24-48) Monocytes % 1 % (0-10) Platelet Estimate Adequate (ADEQUATE) Sodium Level 138 mmol/L (136-145) 137 mmol/L (136-145) Potassium Level 3.6 mmol/L (3.5-5.1) 3.3 mmol/L (3.5-5.1) Chloride Level 103 mmol/L (98-107) 104 mmol/L (98-107) Carbon Dioxide Level 23 mmol/L (21-32) 25 mmol/L (21-32) Anion Gap 12 (6-14) 8 (6-14) Blood Urea Nitrogen 17 mg/dL (7-20) 7 mg/dL (7-20) Creatinine 0.9 mg/dL (0.6-1.0) 0.6 mg/dL (0.6-1.0) Estimated GFR (Cockcroft-Gault) 72.1 115.1 Glucose Level 124 mg/dL (70-99) 88 mg/dL (70-99) Calcium Level 8.6 mg/dL (8.5-10.1) 8.3 mg/dL (8.5-10.1) Laboratory Tests Test 01/22/18 05:00 White Blood Count 8.0 x10^3/uL (4.0-11.0) Red Blood Count 3.85 x10^6/uL (3.50-5.40) Hemoglobin 11.5 g/dL (12.0-15.5) Hematocrit 33.8 % (36.0-47.0) Mean Corpuscular Volume 88 fL (79-100) Mean Corpuscular Hemoglobin 30 pg (25-35) Mean Corpuscular Hemoglobin Concent 34 g/dL (31-37) Red Cell Distribution Width 14.3 % (11.5-14.5) Platelet Count 162 x10^3/uL (140-400) Neutrophils (%) (Auto) 81 % (31-73) Lymphocytes (%) (Auto) 12 % (24-48) Monocytes (%) (Auto) 6 % (0-9) Eosinophils (%) (Auto) 0 % (0-3) Basophils (%) (Auto) 0 % (0-3) Neutrophils # (Auto) 6.5 x10^3uL (1.8-7.7) Lymphocytes # (Auto) 1.0 x10^3/uL (1.0-4.8) Monocytes # (Auto) 0.5 x10^3/uL (0.0-1.1) Eosinophils # (Auto) 0.0 x10^3/uL (0.0-0.7) Basophils # (Auto) 0.0 x10^3/uL (0.0-0.2) Sodium Level 137 mmol/L (136-145) Potassium Level 3.3 mmol/L (3.5-5.1) Chloride Level 104 mmol/L (98-107) Carbon Dioxide Level 25 mmol/L (21-32) Anion Gap 8 (6-14) Blood Urea Nitrogen 7 mg/dL (7-20) Creatinine 0.6 mg/dL (0.6-1.0) Estimated GFR (Cockcroft-Gault) 115.1 Glucose Level 88 mg/dL (70-99) Calcium Level 8.3 mg/dL (8.5-10.1) Medications Current Medications Ondansetron HCl (Zofran) 4 mg 1X ONCE IV Last administered on 01/21/18at 03:09 ; Start 01/21/18 at 03:30; Stop 01/21/18 at 03:31; Status DC Fentanyl Citrate (Fentanyl 2ml Vial) 75 mcg 1X ONCE IV Last administered on at 03:09; Start 01/21/18 at 03:30; Stop 01/21/18 at 03:31; Status DC Sodium Chloride 1,000 ml @ 1,000 mls/hr 1X ONCE IV Last administered on 01/21at 03:53; Start 01/21/18 at 04:00; Stop 01/21/18 at 04:59; Status DC Ceftriaxone Sodium 50 ml @ 100 mls/hr 1X ONCE IV Last administered on at 04:29; Start 01/21/18 at 04:30; Stop 01/21/18 at 04:59; Status DC Morphine Sulfate (Morphine Sulfate) 4 mg 1X ONCE IV Last administered on 01/21at 04:28; Start 01/21/18 at 04:30; Stop 01/21/18 at 04:31; Status DC Ondansetron HCl (Zofran) 4 mg PRN Q8HRS PRN IV NAUSEA/VOMITING 1ST CHOICE; Start 01/21/18 at 05:30; Stop 01/22/18 at 05:29; Status DC Morphine Sulfate (Morphine Sulfate) 4 mg PRN Q2HR PRN IV SEVERE PAIN Last administered on 01/22/18at 03:09; Start 01/21/18 at 05:30; Stop 01/22/18 at 05 :29; Status DC Sodium Chloride 1,000 ml @ 100 mls/hr Q10H IV Last administered on 01/21/18at 05:39; Start 01/21/18 at 05:30; Stop 01/21/18 at 19:32; Status DC Ketorolac Tromethamine (Toradol 30mg Vial) 30 mg 1X ONCE IV Last administered on 01/21/18at 05:39; Start 01/21/18 at 06:00; Stop 01/21/18 at 06:01; Status DC Ringer's Solution 1,000 ml @ 100 mls/hr Q10H IV Last administered on at 05:40; Start 01/21/18 at 09:30 Ondansetron HCl (Zofran) 4 mg PRN Q6HRS PRN IV NAUSEA/VOMITING; Start at 09:00 Prochlorperazine Edisylate (Compazine) 10 mg PRN Q6HRS PRN IV NAUSEA/VOMITING; Start 01/21/18 at 09:00 Ketorolac Tromethamine (Toradol 30mg Vial) 30 mg PRN Q6HRS PRN IV PAIN Last administered on 01/21/18at 21:35; Start 01/21/18 at 09:00; Stop 01/26/18 at 08: 59 Acetaminophen (Tylenol) 650 mg PRN Q6HRS PRN PO Headaches, Temp > 101.5F; Start 01/21/18 at 09:00 Senna/Docusate Sodium (Senna Plus) 1 tab BID PO Last administered on at 07:27; Start 01/21/18 at 09:30 Bisacodyl (Dulcolax Supp) 10 mg PRN DAILY PRN [place] CONSTIPATION; Start 01/21/18 at 09:00 Tamsulosin HCl (Flomax) 0.4 mg QHS PO Last administered on 01/21/18at 21:35; Start 01/21/18 at 21:00 Cefazolin Sodium 50 ml @ 0 mls/hr 1X ONCE IV ; Start 01/22/18 at 12:30; Stop 01/22/18 at 12:30; Status DC Vitals/I & O Vital Sign - Last 24 Hours 01/21/18 01/21/18 01/21/18 01/21/18 12:29 14:05 14:50 15:00 Temp 98.3 98.3 Pulse 83 Resp 18 18 16 B/P (MAP) 102/59 (73) Pulse Ox 97 97 98 O2 Delivery Room Air Room Air Room Air Room Air 01/21/18 01/21/18 01/22/18 01/22/18 19:00 23:00 03:00 03:09 Temp 99.0 99.7 99.3 99.0 99.7 99.3 Pulse 80 86 79 Resp 16 16 17 14 B/P (MAP) 99/62 (74) 98/59 (72) 105/63 (77) Pulse Ox 96 96 100 96 O2 Delivery Room Air Room Air Room Air Room Air 01/22/18 01/22/18 07:42 08:00 Temp 99.8 99.8 Pulse 87 Resp 16 B/P (MAP) 111/70 (84) Pulse Ox 97 O2 Delivery Room Air Room Air Intake and Output 01/21/18 01/21/18 01/22/18 15:00 23:00 07:00 Intake Total 0 ml 1240 ml 1000 ml Balance 0 ml 1240 ml 1000 ml NICOLAS POTTS MD Jan 22, 2018 11:24
[2018-01-22] MEDS ORDERED: POTASSIUM CHLORIDE 20 MEQ TABLET.ER. PO ONE ×2 (11:30→16:00)
[2018-01-22] MEDS ORDERED: DEXAMETHASONE SOD PHOS 20 MG/5 ML VIAL. ONE (12:01)
[2018-01-22] MEDS ORDERED: FAMOTIDINE 20 MG/2 ML VIAL ONE (12:01)
[2018-01-22] MEDS ORDERED: ONDANSETRON PF 4 MG/2 ML VIAL. ONE (12:01)
[2018-01-22] MEDS ORDERED: fentaNYL PF VIAL 100 MCG/2 ML VIAL ONE ×2 (12:01→13:42)
[2018-01-22] MEDS ORDERED: PROPOFOL 20 ML IV ONE (12:01)
[2018-01-22] MEDS ORDERED: LIDOCAINE 2% JELLY 6ML IN APPLICATOR. ONE (12:01)
[2018-01-22] MEDS ORDERED: IOHEXOL 300 MG/ML 100ML VIAL. ONE (12:01)
[2018-01-22] MEDS ORDERED: MIDAZOLAM HCL/PF 2 MG/2 ML VIAL. ONE (12:02)
--- NOTE | 2018-01-22 13:29 | PDOC ---
BRIEF OPERATIVE NOTE Pre-Op Diagnosis right ureteral stone, uti Post-Op Diagnosis same Procedure Performed cysto, R RGPG, stent placement Surgeon Herre Porcelain Waxer None Anesthesia Type: General Blood Loss <5 cc Specimens Obtained None Findings Per operative report Complications none Operative Note Dictation # [id number] ED BURDEN MD Jan 22, 2018 13:29
[2018-01-22] MEDS ORDERED: IV RINGERS,LACTATED 1000ML 1,000 ML IV SCH (13:49)
--- NOTE | 2018-01-22 13:49 | OP ---
DATE OF SURGERY: 01/22/2018 PREOPERATIVE DIAGNOSIS: Obstructing proximal right ureteral stone. POSTOPERATIVE DIAGNOSIS: Obstructing proximal right ureteral stone. PROCEDURES PERFORMED: 1. Cystourethroscopy. 2. Right retrograde pyelogram, 6-Anguillan x 26-cm double-J ureteral stent without string placement. ANESTHESIA: General. COMPLICATIONS: None. ESTIMATED BLOOD LOSS: Less than 5 mL. INDICATIONS FOR PROCEDURE: The patient is a 32-year-old female who presented with renal colic and was found to have a very small 2 mm obstructing proximal right ureteral stone. She also had a urinalysis concerning for infection. She was started on empiric antibiotics and is consenting to the above-mentioned procedures. DESCRIPTION OF PROCEDURE: The patient was met in the preoperative holding area where her procedure, risks, benefits, and alternatives were reviewed in detail. Informed consent was obtained. She was brought back to the operating room and placed supine on the operating table. A timeout was called, identifying the correct patient, procedure, preoperative antibiotics and right side laterality. All members of the surgical team were in agreement. General anesthesia was induced and she was repositioned into dorsal lithotomy and prepped and draped in sterile fashion. A 21-Anguillan rigid cystoscope was placed atraumatically through urethra. Upon complete cystoscopy, we noted inflamed mucosa consistent with a urinary tract infection. The ureteral orifices were orthotopic in position. There were no mucosal lesions, stones or debris. The distal right ureter was cannulated with a Pollack catheter. A retrograde pyelogram was shot identifying no filling defect; however, proximal hydronephrosis. A Sensor wire was then fed up to the renal pelvis under fluoroscopic guidance and with direct vision a 6-Anguillan x 26-cm double-J ureteral stent was placed over the wire. Good proximal positioning was noted within the renal pelvis on fluoroscopy. Distal curl was nicely seen within the bladder. The bladder was inspected, no trauma was noted. The bladder was emptied and the scope was removed under direct vision. The patient was awoken and transferred to PACU in stable condition with plans for definitive stone treatment in approximately 2 weeks after appropriate period of antibiotics. ED BURDEN MD DR: ADALID/cortez JOB#: [id number] / [id number]
[2018-01-22] MEDS ORDERED: MORPHINE SULFATE 2 MG/ML VIAL. IV PRN (14:00)
[2018-01-22] MEDS ORDERED: LIDOCAINE 1% PF 2 ML VIAL. ID PRN (14:00)
[2018-01-22] MEDS ORDERED: HYDROmorphone 2 MG/ML VIAL IV PRN (14:00)
[2018-01-22] MEDS ORDERED: fentaNYL PF VIAL 100 MCG/2 ML VIAL IV PRN ×2 (14:00)
[2018-01-22] MEDS ORDERED: PROCHLORPERAZINE 10 MG/2 ML VIAL. IV PRN (14:00)
[2018-01-22] MEDS ORDERED: ONDANSETRON PF 4 MG/2 ML VIAL. IV PRN (14:00)
[2018-01-22] MEDS: KETOROLAC 30 MG/ML VIAL. IV PRN (17:32)
[2018-01-22] MEDS: TAMSULOSIN 0.4 MG CAP.ER.24H. PO SCH (20:47)
[2018-01-23 03:00] VITALS: BP 97/60
[2018-01-23] MEDS: KETOROLAC 30 MG/ML VIAL. IV PRN (03:17)
[2018-01-23] MEDS: IV RINGERS,LACTATED 1000ML 1,000 ML IV SCH (06:35)
[2018-01-23 07:00] VITALS: BP 111/69
[2018-01-23] MEDS: SENNOSIDES/DOCUSATE 8.6/50MG TABLET. PO SCH (07:47)
--- NOTE | 2018-01-23 08:01 | PDOC ---
PROGRESS NOTES Chief Complaint Chief Complaint Right UPJ stone obstruction History of Present Illness History of Present Illness 32 year old venezuelan speaking female with no significant PMHx p/w right flank pain on 01/20/18 at 2200 In ED noted tachycardic and tachypneic, given IVF and had CT showing right hydronephrosis and 2mm UPJ stone. Due to her initial septic appearance was given 1g rocephin and admitted for pain control. She is feeling relief with pain medications today. To OR for cystoscopy and stent placement 01/22/18, feeling pain 2/10, has f/u to schedule with urology A/P: UTI - with sepsis, elevated HR and RR, given IVF aggressively, started on empiric rocephin for UTI, likely from infection kidney stone on right. Will d/c on ceftin 250mg BID for 5 days for e. coli 100K CFU Right hydronephrosis - likely 2/2 UPJ obstruction Right nephrolithiasis - with size, this may pass. Added flomax. Per urology post cysto and right pyelogram. Surgery yesterday afternoon at 1230 and consents entered. Vitals Vitals Vital Signs Date Time Temp Pulse Resp B/P (MAP) Pulse Ox O2 Delivery O2 Flow Rate FiO2 01/23/18 03:00 97.6 56 17 97/60 (72) 98 Room Air 97.6 01/22/18 14:15 2 Physical Exam General: Alert, Oriented X3, Cooperative, No acute distress Abdomen: Normal bowel sounds, Soft, No hepatosplenomegaly, No masses, Other ( Right flank pain and suprpubic pain, RLQ pain) Extremities: No clubbing, No cyanosis, No edema, Normal pulses, No tenderness/ swelling Skin: No rashes, No breakdown, No significant lesion Assessment and Plan Assessmemt and Plan Problems Medical Problems: (1) Kidney stone Status: Acute (2) Urinary tract infection Status: Acute Comment Review of Relevant I have reviewed the following items mireya (where applicable) has been applied. Labs Laboratory Tests Test 01/22/18 05:00 White Blood Count 8.0 x10^3/uL (4.0-11.0) Red Blood Count 3.85 x10^6/uL (3.50-5.40) Hemoglobin 11.5 g/dL (12.0-15.5) Hematocrit 33.8 % (36.0-47.0) Mean Corpuscular Volume 88 fL (79-100) Mean Corpuscular Hemoglobin 30 pg (25-35) Mean Corpuscular Hemoglobin Concent 34 g/dL (31-37) Red Cell Distribution Width 14.3 % (11.5-14.5) Platelet Count 162 x10^3/uL (140-400) Neutrophils (%) (Auto) 81 % (31-73) Lymphocytes (%) (Auto) 12 % (24-48) Monocytes (%) (Auto) 6 % (0-9) Eosinophils (%) (Auto) 0 % (0-3) Basophils (%) (Auto) 0 % (0-3) Neutrophils # (Auto) 6.5 x10^3uL (1.8-7.7) Lymphocytes # (Auto) 1.0 x10^3/uL (1.0-4.8) Monocytes # (Auto) 0.5 x10^3/uL (0.0-1.1) Eosinophils # (Auto) 0.0 x10^3/uL (0.0-0.7) Basophils # (Auto) 0.0 x10^3/uL (0.0-0.2) Sodium Level 137 mmol/L (136-145) Potassium Level 3.3 mmol/L (3.5-5.1) Chloride Level 104 mmol/L (98-107) Carbon Dioxide Level 25 mmol/L (21-32) Anion Gap 8 (6-14) Blood Urea Nitrogen 7 mg/dL (7-20) Creatinine 0.6 mg/dL (0.6-1.0) Estimated GFR (Cockcroft-Gault) 115.1 Glucose Level 88 mg/dL (70-99) Calcium Level 8.3 mg/dL (8.5-10.1) Microbiology 01/21/18 Urine Culture - Preliminary, Resulted 01/21/18 Urine Culture Result 1 (TEDDY) - Preliminary, Resulted Medications Current Medications Ondansetron HCl (Zofran) 4 mg 1X ONCE IV Last administered on 01/21/18at 03:09 ; Start 01/21/18 at 03:30; Stop 01/21/18 at 03:31; Status DC Fentanyl Citrate (Fentanyl 2ml Vial) 75 mcg 1X ONCE IV Last administered on at 03:09; Start 01/21/18 at 03:30; Stop 01/21/18 at 03:31; Status DC Sodium Chloride 1,000 ml @ 1,000 mls/hr 1X ONCE IV Last administered on 01/21at 03:53; Start 01/21/18 at 04:00; Stop 01/21/18 at 04:59; Status DC Ceftriaxone Sodium 50 ml @ 100 mls/hr 1X ONCE IV Last administered on at 04:29; Start 01/21/18 at 04:30; Stop 01/21/18 at 04:59; Status DC Morphine Sulfate (Morphine Sulfate) 4 mg 1X ONCE IV Last administered on 01/21at 04:28; Start 01/21/18 at 04:30; Stop 01/21/18 at 04:31; Status DC Ondansetron HCl (Zofran) 4 mg PRN Q8HRS PRN IV NAUSEA/VOMITING 1ST CHOICE; Start 01/21/18 at 05:30; Stop 01/22/18 at 05:29; Status DC Morphine Sulfate (Morphine Sulfate) 4 mg PRN Q2HR PRN IV SEVERE PAIN Last administered on 01/22/18at 03:09; Start 01/21/18 at 05:30; Stop 01/22/18 at 05 :29; Status DC Sodium Chloride 1,000 ml @ 100 mls/hr Q10H IV Last administered on 01/21/18at 05:39; Start 01/21/18 at 05:30; Stop 01/21/18 at 19:32; Status DC Ketorolac Tromethamine (Toradol 30mg Vial) 30 mg 1X ONCE IV Last administered on 01/21/18at 05:39; Start 01/21/18 at 06:00; Stop 01/21/18 at 06:01; Status DC Ringer's Solution 1,000 ml @ 100 mls/hr Q10H IV Last administered on at 06:35; Start 01/21/18 at 09:30 Ondansetron HCl (Zofran) 4 mg PRN Q6HRS PRN IV NAUSEA/VOMITING, 1ST CHOICE; Start 01/21/18 at 09:00 Prochlorperazine Edisylate (Compazine) 10 mg PRN Q6HRS PRN IV NAUSEA/VOMITING, 2ND CHOICE; Start 01/21/18 at 09:00 Ketorolac Tromethamine (Toradol 30mg Vial) 30 mg PRN Q6HRS PRN IV PAIN Last administered on 01/23/18at 03:17; Start 01/21/18 at 09:00; Stop 01/26/18 at 08: 59 Acetaminophen (Tylenol) 650 mg PRN Q6HRS PRN PO Headaches, Temp > 101.5F; Start 01/21/18 at 09:00 Senna/Docusate Sodium (Senna Plus) 1 tab BID PO Last administered on at 07:47; Start 01/21/18 at 09:30 Bisacodyl (Dulcolax Supp) 10 mg PRN DAILY PRN DC CONSTIPATION; Start 01/21/18 at 09:00 Tamsulosin HCl (Flomax) 0.4 mg QHS PO Last administered on 01/22/18at 20:47; Start 01/21/18 at 21:00 Cefazolin Sodium 50 ml @ 0 mls/hr 1X ONCE IV ; Start 01/22/18 at 12:30; Stop 01/22/18 at 12:30; Status DC Potassium Chloride (Klor-Con) 40 meq 1X ONCE PO Last administered on at 15:49; Start 01/22/18 at 11:30; Stop 01/22/18 at 11:31; Status DC Dexamethasone Sodium Phosphate (Decadron) 20 mg STK-MED ONCE .ROUTE ; Start at 12:01; Stop 01/22/18 at 12:02; Status DC Ondansetron HCl (Zofran) 4 mg STK-MED ONCE .ROUTE ; Start 01/22/18 at 12:01; Stop 01/22/18 at 12:02; Status DC Iohexol (Omnipaque 300 Mg/ml) 100 ml STK-MED ONCE .ROUTE Last administered on 01/22/18at 12:23; Start 01/22/18 at 12:01; Stop 01/22/18 at 12:02; Status DC Famotidine (Pepcid Vial) 20 mg STK-MED ONCE .ROUTE ; Start 01/22/18 at 12:01; Stop 01/22/18 at 12:02; Status DC Propofol 20 ml @ As Directed STK-MED ONCE IV ; Start 01/22/18 at 12:01; Stop 01/22/18 at 12:02; Status DC Lidocaine HCl (Glydo (Lidocaine) Jelly) 6 cole STK-MED ONCE .ROUTE ; Start 01/22 at 12:01; Stop 01/22/18 at 12:02; Status DC Fentanyl Citrate (Fentanyl 2ml Vial) 100 mcg STK-MED ONCE .ROUTE ; Start at 12:01; Stop 01/22/18 at 12:02; Status DC Midazolam HCl (Versed) 2 mg STK-MED ONCE .ROUTE ; Start 01/22/18 at 12:02; Stop 01/22/18 at 12:03; Status DC Fentanyl Citrate (Fentanyl 2ml Vial) 100 mcg STK-MED ONCE .ROUTE ; Start at 13:42; Stop 01/22/18 at 13:43; Status DC Ondansetron HCl (Zofran) 4 mg PRN Q6HRS PRN IV NAUSEA/VOMITING; Start at 14:00; Stop 01/22/18 at 19:16; Status DC Fentanyl Citrate (Fentanyl 2ml Vial) 25 mcg PRN Q5MIN PRN IV MILD PAIN; Start 01/22/18 at 14:00; Stop 01/22/18 at 19:16; Status DC Fentanyl Citrate (Fentanyl 2ml Vial) 50 mcg PRN Q5MIN PRN IV MODERATE TO SEVERE PAIN Last administered on 01/22/18at 13:56; Start 01/22/18 at 14:00; Stop 01/22/18 at 19:16; Status DC Morphine Sulfate (Morphine Sulfate) 1 mg PRN Q10MIN PRN IV SEVERE PAIN; Start 01/22/18 at 14:00; Stop 01/22/18 at 19:16; Status DC Ringer's Solution 1,000 ml @ 30 mls/hr Q24H IV ; Start 01/22/18 at 13:49; Stop 01/22/18 at 19:16; Status DC Lidocaine HCl (Xylocaine-Mpf 1% 2ml Vial) 2 ml PRN 1X PRN ID PRIOR TO IV START ; Start 01/22/18 at 14:00; Stop 01/22/18 at 19:16; Status DC Hydromorphone HCl (Dilaudid) 0.5 mg PRN Q10MIN PRN IV SEV PAIN, Second choice; Start 01/22/18 at 14:00; Stop 01/22/18 at 19:16; Status DC Prochlorperazine Edisylate (Compazine) 5 mg PACU PRN PRN IV NAUSEA, MRX1; Start 01/22/18 at 14:00; Stop 01/22/18 at 19:16; Status DC Potassium Chloride (Klor-Con) 40 meq 1X ONCE PO ; Start 01/22/18 at 16:00; Stop 01/22/18 at 16:01; Status DC Vitals/I & O Vital Sign - Last 24 Hours 01/22/18 01/22/18 01/22/18 01/22/18 11:00 11:43 13:30 13:30 Temp 99.4 99.1 98.5 99.4 99.1 98.5 Pulse 93 86 66 Resp 20 24 12 B/P (MAP) 101/68 (79) 113/66 99/59 Pulse Ox 98 98 100 O2 Delivery Room Air Room Air Mask Simple Mask O2 Flow Rate 10 10 01/22/18 01/22/18 01/22/18 01/22/18 13:45 13:56 14:00 14:15 Temp 98.5 98.9 98.5 98.9 Pulse 72 61 64 Resp 18 14 14 18 B/P (MAP) 101/61 92/58 96/57 (70) Pulse Ox 97 100 100 95 O2 Delivery Nasal Cannula Nasal Cannula Nasal Cannula Room Air O2 Flow Rate 2 2.0 2 01/22/18 01/22/18 01/22/18 01/22/18 14:15 14:30 14:45 15:00 Temp 98.5 98.5 Pulse 63 66 66 69 Resp 14 B/P (MAP) 93/58 105/59 (74) 99/58 (72) 108/52 (70) Pulse Ox 99 96 O2 Delivery Nasal Cannula Room Air O2 Flow Rate 2 01/22/18 01/22/18 01/22/18 01/22/18 15:15 15:30 16:00 16:30 Pulse 65 66 63 64 B/P (MAP) 106/50 (68) 96/51 (66) 105/60 (75) 109/55 (73) 01/22/18 01/22/18 01/23/18 19:00 23:00 03:00 Temp 97.5 97.6 97.6 97.5 97.6 97.6 Pulse 66 62 56 Resp 18 17 17 B/P (MAP) 96/66 (76) 104/61 (75) 97/60 (72) Pulse Ox 96 97 98 O2 Delivery Room Air Room Air Room Air Intake and Output 01/22/18 01/22/18 01/23/18 15:00 23:00 07:00 Intake Total 1020 ml Output Total 200 ml 0 ml Balance 820 ml 0 ml NICOLAS POTTS MD Jan 23, 2018 08:00
--- NOTE | 2018-01-23 09:14 | PDOC ---
SUBJECTIVE Subjective Patient doing well, would like to go home. Wants to go back to work Sunday if OK with us. OBJECTIVE Objective Physical Exam: General appearance: Alert and Oriented Head: Normocephalic, without obvious abnormality Eyes: conjunctivae/corneas clear. PERRL, EOM's intact. Fundi benign Lungs: regular respirations, non labored breathing. Abdomen: soft, non-tender. No masses, no organomegaly Vital Signs Vital Signs Date Time Temp Pulse Resp B/P (MAP) Pulse Ox O2 Delivery O2 Flow Rate FiO2 01/23/18 07:00 97.7 51 20 111/69 (83) 97 Room Air 97.7 01/23/18 03:00 97.6 56 17 97/60 (72) 98 Room Air 97.6 01/22/18 23:00 97.6 62 17 104/61 (75) 97 Room Air 97.6 01/22/18 19:00 97.5 66 18 96/66 (76) 96 Room Air 97.5 01/22/18 16:30 64 109/55 (73) 01/22/18 16:00 63 105/60 (75) 01/22/18 15:30 66 96/51 (66) 01/22/18 15:15 65 106/50 (68) 01/22/18 15:00 69 108/52 (70) 01/22/18 14:45 66 99/58 (72) 96 Room Air 01/22/18 14:30 66 105/59 (74) 01/22/18 14:15 98.5 63 14 93/58 99 Nasal Cannula 2 98.5 01/22/18 14:15 98.9 64 18 96/57 (70) 95 Room Air 98.9 01/22/18 14:00 98.5 61 14 92/58 100 Nasal Cannula 2 98.5 01/22/18 13:56 14 100 Nasal Cannula 2.0 01/22/18 13:45 72 18 101/61 97 Nasal Cannula 2 01/22/18 13:30 98.5 66 12 99/59 100 Simple Mask 10 98.5 01/22/18 13:30 Mask 10 01/22/18 11:43 99.1 86 24 113/66 98 Room Air 99.1 01/22/18 11:00 99.4 93 20 101/68 (79) 98 Room Air 99.4 I & O Intake and Output 01/23/18 07:00 Intake Total 1020 ml Output Total 200 ml Balance 820 ml Intake Oral 20 ml IV Total 1000 ml Output Urine Total 200 ml Estimated Blood Loss 0 ml # Voids 3 PHYSICAL EXAM Physical Exam Physical Exam: General appearance: Alert and Oriented Head: Normocephalic, without obvious abnormality Eyes: conjunctivae/corneas clear. PERRL, EOM's intact. Fundi benign Lungs: regular respirations, non labored breathing. Abdomen: soft, non-tender. No masses, no organomegaly ASSESSMENT/PLAN Assessment/Plan POD 1: Cystourethroscopy, 2. Right retrograde pyelogram, 6-Thai x 26-cm double-J ureteral stent without string placement. Ok to discharge from a Urology perspective. may bring [place] paperwork to office and she can RTW on Sunday. Patient should be getting a phone call from [facility], surgery attendant for [facility]. Message sent to [facility]. If she does get a phone call from [facility] within the next few days, please call our office. WBC 8.0, Fast Food Attendant 0.6, BUN 7 Problems: (1) Kidney stone (2) Urinary tract infection COMMENT Imaging IMPRESSION: There appears to be a 2 mm right UPJ calculus which is causing mild obstruction of the right collecting system. EMY WILKINSON [employer]LECT[employer] AND [employer] UP MECHANIC Jan 23, 2018 09:14
[2018-01-23 11:00] VITALS: BP 110/57
[2018-01-23] MEDS ORDERED: CEFU250T59 PO (12:31)
--- NOTE | 2018-01-23 12:37 | PDOC3 ---
Discharge Summary Visit Information Date of Admission: Jan 21, 2018 Date of Discharge: Jan 23, 2018 Admitting Diagnosis: Kidney stone, UTI Final Diagnosis Problems Medical Problems: (1) Kidney stone Status: Acute (2) Urinary tract infection Status: Acute Brief Hospital Course Allergies Allergies Coded Allergies Type Severity Reaction Last Updated Verified No Known Drug Allergies 01/21/18 No Vital Signs Vital Signs Date Time Temp Pulse Resp B/P (MAP) Pulse Ox O2 Delivery O2 Flow Rate FiO2 01/23/18 11:00 97.7 54 20 110/57 (74) 98 Room Air 97.7 01/22/18 14:15 2 Lab Results Laboratory Tests Test 01/22/18 05:00 White Blood Count 8.0 x10^3/uL (4.0-11.0) Red Blood Count 3.85 x10^6/uL (3.50-5.40) Hemoglobin 11.5 g/dL (12.0-15.5) Hematocrit 33.8 % (36.0-47.0) Mean Corpuscular Volume 88 fL (79-100) Mean Corpuscular Hemoglobin 30 pg (25-35) Mean Corpuscular Hemoglobin Concent 34 g/dL (31-37) Red Cell Distribution Width 14.3 % (11.5-14.5) Platelet Count 162 x10^3/uL (140-400) Neutrophils (%) (Auto) 81 % (31-73) Lymphocytes (%) (Auto) 12 % (24-48) Monocytes (%) (Auto) 6 % (0-9) Eosinophils (%) (Auto) 0 % (0-3) Basophils (%) (Auto) 0 % (0-3) Neutrophils # (Auto) 6.5 x10^3uL (1.8-7.7) Lymphocytes # (Auto) 1.0 x10^3/uL (1.0-4.8) Monocytes # (Auto) 0.5 x10^3/uL (0.0-1.1) Eosinophils # (Auto) 0.0 x10^3/uL (0.0-0.7) Basophils # (Auto) 0.0 x10^3/uL (0.0-0.2) Sodium Level 137 mmol/L (136-145) Potassium Level 3.3 mmol/L (3.5-5.1) Chloride Level 104 mmol/L (98-107) Carbon Dioxide Level 25 mmol/L (21-32) Anion Gap 8 (6-14) Blood Urea Nitrogen 7 mg/dL (7-20) Creatinine 0.6 mg/dL (0.6-1.0) Estimated GFR (Cockcroft-Gault) 115.1 Glucose Level 88 mg/dL (70-99) Calcium Level 8.3 mg/dL (8.5-10.1) Brief Hospital Course 32 year old german speaking female with no significant PMHx p/w right flank pain on 01/20/18 at 2200 In ED noted tachycardic and tachypneic, given IVF and had CT showing right hydronephrosis and 2mm UPJ stone. Due to her initial septic appearance was given 1g rocephin and admitted for pain control. She is feeling relief with pain medications today. To OR for cystoscopy and stent placement 01/22/18, feeling pain 2/10, has f/u to schedule with urology A/P: UTI - with sepsis, elevated HR and RR, given IVF aggressively, started on empiric rocephin for UTI, likely from infection kidney stone on right. Will d/c on ceftin 250mg BID for 5 days for e. coli 100K CFU Right hydronephrosis - likely 2/2 UPJ obstruction Right nephrolithiasis - with size, this may pass. Added flomax. Per urology post cysto and right pyelogram. Surgery yesterday afternoon at 1230 and consents entered. 33 minutes on d/c including translation from citizen of [place] to german Discharge Information Condition at Discharge: Improved Follow Up: Weeks (1) Disposition/Orders: D/C to Home Scheduled Cefuroxime Axetil (Cefuroxime) 250 Mg Tablet, 250 MG PO BID for uti for 5 Days, #10 Prescribed by: NICOLAS POTTS MD on 01/23/18 1231 NICOLAS POTTS MD Jan 23, 2018 12:37
== END 2018-01-23 13:40 | disposition home or self-care (01) | DRG 854 ==
LOC: ER 02:33 → 5 SOUTH 05:41 → OBSVTOIN 09:02
PROVIDERS: ADMIT Internal Medicine; ATTEND Internal Medicine
PROC: 0T768DZ Dilation of Right Ureter with Intraluminal Device, Via Natural or Artificial Opening Endoscopic (ICD-10-PCS; 2018-01-22)
PROC: BT1D1ZZ Fluoroscopy of Right Kidney, Ureter and Bladder using Low Osmolar Contrast (ICD-10-PCS; principal; 2018-01-22 12:30)
DX: A41.9 Sepsis, unspecified organism (principal); N13.6 Pyonephrosis; Z83.3 Family history of diabetes mellitus; Z82.49 Family history of ischemic heart disease and other diseases of the circulatory system
CPT/HCPCS: 36415; 74176; 74420; 80048; 81001; 81025; 85007; 85025; 87086; 87186; 96361; 96365; 96375; C1713; C1769; C2617; G0378; G0379; J0690; J1100; J1885; J2250; J2270; J2405; J2704; J3010; J3490; J7030; J7120; Q9967; 99285-25

== ENCOUNTER 2018-02-12 12:55 | Day surgery (SDC) | payer BC ==
[~2018-02-12] VITALS: Ht 162.6 cm; Wt 59.0 kg
[~2018-02-12 12:55] MED LIST: CEFU250T59 PO; HYDROmorphone 2 MG/ML VIAL IV PRN; IOHEXOL 300 MG/ML 100ML VIAL. ONE; IV RINGERS,LACTATED 1000ML 1,000 ML IV SCH; LIDOCAINE 1% PF 2 ML VIAL. ID PRN; MORPHINE SULFATE 2 MG/ML VIAL. IV PRN; NAPR220C4 PO; ONDANSETRON PF 4 MG/2 ML VIAL. IV PRN; PROCHLORPERAZINE 10 MG/2 ML VIAL. IV PRN; ceFAZolin 2GM PREMIX 2 GM/50 ML BAG IV ONE; fentaNYL PF VIAL 100 MCG/2 ML VIAL IV PRN
[2018-02-12] MEDS ORDERED: fentaNYL PF VIAL 100 MCG/2 ML VIAL ONE (14:05)
[2018-02-12] MEDS ORDERED: PROPOFOL 20 ML IV ONE (14:37)
[2018-02-12] MEDS ORDERED: DEXAMETHASONE SOD PHOS 20 MG/5 ML VIAL. ONE (14:37)
[2018-02-12] MEDS ORDERED: KETOROLAC 30 MG/ML INJ FOR OR. INJ ONE (14:37)
[2018-02-12] MEDS ORDERED: LIDOCAINE 2% PF Vial for OR 5 ML VIAL. ONE (14:37)
[2018-02-12] MEDS ORDERED: ONDANSETRON PF 4 MG/2 ML VIAL. ONE (14:37)
--- NOTE | 2018-02-12 15:16 | PDOC ---
BRIEF OPERATIVE NOTE Pre-Op Diagnosis right ureteral stone, UTI Post-Op Diagnosis passed ureteral stone Procedure Performed cystoscopy, right retrograde pyelogram, ureteroscopy, stent exchange Surgeon Herjulia Bakery Machine Mechanic Supervisor none Anesthesia Type: General Blood Loss <5cc Specimens Obtained none Findings passed ureteral stone Complications none Operative Note Dictation # [id number] ED BURDEN MD Feb 12, 2018 15:16
--- NOTE | 2018-02-12 15:28 | OP ---
DATE OF SURGERY: 02/12/2018 PREOPERATIVE DIAGNOSES: 1. Obstructing proximal right ureteral stone. 2. Urinary tract infection. POSTOPERATIVE DIAGNOSIS: No ureteral stone identified. PROCEDURE PERFORMED: 1. Cystourethroscopy. 2. Right retrograde pyelogram. 3. Right ureteroscopy. 4. Right 6-Albanian x 26-cm double-J ureteral stent exchange on string. ANESTHESIA: General. COMPLICATIONS: None. BLOOD LOSS: Less than 5 mL. INDICATIONS FOR PROCEDURE: The patient is a 32-year-old female who presented a few weeks ago with renal colic as well as a urinary tract infection and was identified as having a 2 mm proximal right ureteral stone. She underwent ureteral stent placement at that time. After sufficient period of antibiotics she was offered either stent removal with trial of passage of stone versus the above-mentioned procedures. She elected for surgical intervention. DESCRIPTION OF PROCEDURE: The patient was seen in the preoperative holding area where her procedure, risks, benefits, and alternatives were reviewed in detail. Informed consent was obtained and she was brought back to the operating room and placed supine on the operating table. A timeout was called, identifying the correct patient, correct procedure, preoperative antibiotics, and right side laterality. All members of the surgical team were in agreement. General anesthesia was induced and she was repositioned into dorsal lithotomy and prepped and draped in sterile fashion. A 21-Albanian rigid cystoscope was placed atraumatically through urethra into her bladder. No abnormalities were noted within the urethra or bladder on cystoscopy with a 30-degree lens. The ureteral orifices were orthotopic. The right stent was grasped and externalized to her urethral meatus. A Sensor wire was fed through the stent up to the renal pelvis under fluoroscopic guidance. The scope was returned to the bladder and a second working wire was placed. The bladder was emptied and the scope was removed. Over one of the wires, a flexible ureteroscope was placed using fluoroscopic guidance up to the renal pelvis. A complete pyeloscopy was performed and did not identify any stones. There was a Clayton plaque in the mid to lower pole. A retrograde pyelogram was shot to identify the renal anatomy. All calices were thoroughly inspected and no stone was noted. On looking the urine out there was no stone or trauma noted within the ureter. The cystoscope was then replaced and the bladder was reinspected. No trauma was noted. The bladder was emptied and the scope was removed. Over the remaining wire, a 6-Albanian x 26-cm double-J ureteral stent on a string was placed with fluoroscopic guidance. Good proximal positioning was noted in the upper pole. Distal curl was seen within the bladder. The patient was then awoken and transferred to the PACU in stable condition with plans to remove her ureteral stent at home on Sunday. ED BURDEN MD DR: ADALID/cortez JOB#: [id number] / [id number]
--- NOTE | 2018-02-12 15:30 | DISCH ---
DISCHARGE INSTRUCTIONS Condition on Discharge Condition on Discharge: Stable Activity After Discharge Activity Instructions for Disc: No restrictions Driving Instructions after Dis: Other, see below (Do not drive today and if taking narcotic pain medications.) Diet after Discharge Diet after Discharge: Regular Wound Incision Care Other wound/incision instructi: Remove your ureteral stent on Sunday morning. Contacting the DRCasie after DC Call your doctor for: fevers, uncontrolled pain, bleeding, trouble urinating Follow-Up Follow up with: with Dr. Burden in 3 weeks ED BURDEN MD Feb 12, 2018 15:30
[2018-02-12] MEDS ORDERED: HYDR-3164 PO (15:38)
[2018-02-12] MEDS ORDERED: HYDROcodone/APAP 5/325MG 1 TAB TABLET PO ONE (16:00)
[2018-02-12 16:15] VITALS: BP 138/79
== END 2018-02-12 16:58 | disposition home or self-care (01) ==
LOC: SURG 12:55
PROVIDERS: ATTEND Urology
DX: N39.0 Urinary tract infection, site not specified (principal); Z46.6 Encounter for fitting and adjustment of urinary device
CPT/HCPCS: 52332; 74420; A7015; C1769; C1776; C2617; J0690; J1100; J1885; J2001; J2405; J2704; J3010; J7120; Q9967